=== PATIENT | male | born 1990 | race Two or more races ===

== ENCOUNTER → 2017-01-31 | Outpatient (CLI) | payer OTHER ==
[~2017-01-31] MED LIST: ETOMIDATE 20 MG/10 ML VIAL IV PUSH ONE; LIDOCAINE HCL 2% 100 MG/5 ML SYRINGE IV PUSH ONE; LORazepam 2 MG/ML VIAL IV PUSH ONE
== END ==
LOC: HEDF 03:14
DX: R41.82 Altered mental status, unspecified (principal); S05.11XA Contusion of eyeball and orbital tissues, right eye, initial encounter; V29.9XXA Motorcycle rider (driver) (passenger) injured in unspecified traffic accident, initial encounter
CPT/HCPCS: A0431; A0436; J2060